=== PATIENT | male | born 1970 | race Caucasian/White ===

== ENCOUNTER 2018-11-19 11:21 | Inpatient (IN) | payer OTHER ==
[~2018-11-19 11:21] MED LIST: Lidocaine 1% INJ* 10 MG/ML 30 ML SDV ONE
[2018-11-19] MEDS ORDERED: Midazolam* 1 MG/ML 5 ML VIAL (5 MG) ONE (11:22)
[2018-11-19] MEDS ORDERED: VERAPAMIL 2.5 MG/ML 2 ML VIAL ** 5 mg/2 ml ONE (11:22)
[2018-11-19] MEDS ORDERED: Iohexol 350 (CONTRAST) 200 ML MDV IV ONE ×2 (11:23→11:24)
[2018-11-19] MEDS ORDERED: nitroGLYCERIN DRIP* 25,000 MCG/250 ML BTL ONE (11:23)
[2018-11-19] MEDS ORDERED: Lidocaine 1% INJ* 10 MG/ML 30 ML SDV ONE (11:23)
[2018-11-19] MEDS ORDERED: Heparin 2 UNITS/ML IVPREMIX* 3,000 UNIT/1,500 ML BAG IV ONE (11:24)
--- NOTE | 2018-11-19 11:41 | UC ---
- Progress Note Progress Note: Patient presents to the emergency department stretcher transfer from our hospital. Patient's a 48-year-old gentleman with a history of tobacco use. Patient does not have a primary care provider. Patient presented at [facility] with acute onset chest pain. EKG showed inferior wall STEMI. Patient was given heparin [facility]. Patient was infected by me to cardiac catheterization lab. [facility]. Patient had a 62nd episode of ventricular tachycardia cardia at [facility] and was given 300 mg amiodarone bolus as well as started on a drip. Patient's EKG changes resolved following the nitroglycerin at OSH. Cardiac cath associate designer was notified at initial STEMI. He has been in contact with [facility] provider. He was present when the patient arrived [facility]'s emergency department. Patient was stable with no complaints upon arrival. Patient was admitted directly to cardiac Physician. Physical exam was not completed by me is Attending was at the bedside and the patient left the department in less than 5 minutes. Course/Dx - Diagnoses Provider Diagnoses: STEMI (ST elevation myocardial infarction) Discharge - Sign-Out/Discharge Documenting (check all that apply): Patient Departure All imaging exams completed and their final reports reviewed: No Studies - Discharge Plan Condition: Fair Disposition: ADMITTED TO [facility] - Billing Disposition and Condition Condition: FAIR Disposition: Admitted to [facility]
[2018-11-19] MEDS ORDERED: Heparin DRIP 25,000 UNITS(*) 25,000 UNITS/500 ML BAG ONE (12:01)
[2018-11-19] MEDS ORDERED: NS 0.9% 1000 ML** 1,000 ML IV SCH (12:45)
--- NOTE | 2018-11-19 13:44 | HP ---
HISTORY AND PHYSICAL: DATE OF ADMISSION: 11/19/18 ATTENDING PHYSICIAN: Dr. Yakov Lancaster, superintendent institution * (dictated by Aubrie Hernandez NP) CHIEF COMPLAINT: Chest pain with ST elevation myocardial infarction at [facility]. HISTORY OF PRESENT ILLNESS: This is a 48-year-old male patient with a notable history of ongoing tobacco abuse, marijuana use, and alcohol use, who presented to [facility] this morning due to complaints of chest pain. The patient states that he has been in his usual state of health; denies any recent hospitalization, illness, or infection. 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 He states that he has not noticed decreased exercise tolerance, chest pain, dizziness, syncope, or shortness of breath. Apparently, he has been in his usual state of health up until this morning around 0830 when he was putting on his pants, he suddenly developed substernal chest pain with associated diaphoresis. The patient states he thought pain was "indigestion;" however, pain was constant and ongoing, thus he drove himself to [facility]. While being evaluated in the hospital, the patient had basic blood work obtained and ECG obtained. Initial ECG at 0913 revealed sinus rhythm, rate of 63, with anterolateral ST segment elevation in leads V3, 4, 5, and 6. The patient was given aspirin 325 mg x1, Brilinta 180 mg x1, IV heparin with bolus. At 0938, the pain had resolved. Thus, ECG was updated which showed a near resolution of ST segment elevation; however, reportedly, the patient developed VT, likely related to reperfusion. Thus, he was given 300 mg of IV amiodarone followed by drip. VT did not require defibrillation; he converted on his own. He has been stable since and was transferred to [facility] for urgent left heart catheterization due to anterolateral STEMI. The patient was seen and examined in the emergency department by myself and Dr. Yakov Lancaster. He denies cocaine use, denies any other reported symptoms and states he has never had chest pain in the past, this was the first episode. PAST MEDICAL HISTORY: 1. Tobacco abuse. 2. Alcohol use. 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 ALLERGIES: The patient reports anaphylaxis to BEE STINGS, otherwise denies allergy to contrast dye, shellfish, or red dye. FAMILY HISTORY: Denies cardiovascular disease in first-degree relatives. SOCIAL HISTORY: The patient is to his , Renita, whom he resides with. 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 He reports smoking half a pack of cigarettes a day for more than 30 years, consumes 1 to 2 beers a night, reports frequent marijuana use, but denies IV drug use or cocaine use. He ambulates independently. REVIEW OF SYSTEMS: All systems have been reviewed and are otherwise negative except what is above mentioned in the HPI. PHYSICAL EXAMINATION GENERAL: The patient is anxious, lying in stretcher in the emergency department upon examination. However, he is alert and oriented x3 and he is cooperative with the examination. He does not currently appear to be in any apparent distress. HEENT: Head is atraumatic, normocephalic. Oral mucosa is moist. Tongue is midline. NECK: Supple, trachea midline, no JVD, no carotid bruits. LUNGS: Auscultated posteriorly. Diminished throughout, although there is no evidence of adventitious breath sounds auscultated. CARDIAC: Diminished S1, S2, regular rate and rhythm. No murmur, rub or gallop noted. /GI: Abdomen is soft, nontender, nondistended. Normoactive bowel sounds x4. EXTREMITIES: No pedal edema, no clubbing, no cyanosis. PERIPHERAL VASCULAR: 2+ brachial and dorsalis pedis pulses palpable bilaterally and symmetrically. Vital signs are pending to be obtained. DIAGNOSTIC STUDIES/LAB DATA: Blood work obtained at [facility] on 11/19: Per report, troponin 0.027, CK-MB 1.8, white blood cell count 6.28, hemoglobin 16.2, hematocrit 46.5, platelets 159. INR pending. Sodium 141, potassium 3.7, magnesium 1.9, creatinine 1.1, BUN 12, glucose 79. ECG on 11/19/18 at 0913: Sinus rhythm, rate of 63, with anterolateral ST segment elevation. Repeat ECG at 0930 on 11/19/18: Sinus rhythm, rate of 73, with near resolution of anterolateral ST segment elevation. ASSESSMENT AND PLAN: 1. Anterolateral ST-elevation myocardial infarction. The patient had sudden onset complaint of substernal chest pain with associated diaphoresis at 0830 this morning. He states he has been in his usual state of health. Risk factors include ongoing tobacco abuse and alcohol use. The patient had resolvement of symptoms and improvement of ST segment elevation with near resolution after the patient was given aspirin, Brilinta, and IV heparin therapy. However, he developed ventricular tachycardia that was treated chemically with 300 mg of IV amiodarone followed by a drip, likely reflective of reperfusion. The patient is currently asymptomatic. He has been taken urgently to the cardiac laborer wrecking [facility] salvaging where he will undergo a left heart catheterization with Dr. Yakov Lancaster. Procedure was reviewed with the patient including risks and benefits not limited to and include bleeding, infection, vessel damage, risk of contrast-use nephropathy, risk of stroke, heart attack, or , requirement of dual-antiplatelet therapy or referral for possible bypass surgery. Consent was obtained by Dr. Yakov Lancaster. The patient will need to be admitted to the ICU afterwards. We will check echocardiogram and follow closely. 2. Newly diagnosed coronary artery disease. We will check lipid panel. We recommend LDL less than 70. We will continue aspirin 81 mg a day, likely continue Brilinta at 90 mg p.o. b.i.d. and we will make further recommendations in regards to medical therapy after cardiac catheterization today. 3. Ongoing tobacco abuse. I personally counseled the patient the importance of smoking cessation for overall cardiovascular benefits. The patient does not seem interested in quitting at this time. 4. Ventricular tachycardia. The patient apparently had ventricular tachycardia after chest pain resolved and ST elevation improved, likely related to reperfusion. Potassium is 3.7, recommend keeping potassium greater than 4; magnesium 1.9, recommend keeping magnesium greater than 2. We will continue IV amiodarone therapy at this time and make further recommendations post left heart cath. 5. Disposition. Pending course. Dr. Yakov Lancaster has personally seen and examined the patient and agrees with the above assessment and plan. AUBRIE HERNANDEZ NP [id number]/[facility] #: [id number] HARRY
--- NOTE | 2018-11-19 14:26 | CATH ---
"*[facility]* [place] [address] Main: [phone] [email or web address] Cardiac Catheterization Patient: Maxime Camargo : 1970 Study Date: 11/19/2018 Age: 48 Gender: M HR: Height: 66 in /167.6 cm BSA: 1.69 m^2 Weight: 134.2 lb /61 kg BMI: 21.7 kg/m^2 [place] Supervisor: Yakov Lancaster MD Ordering Physician: Yakov Lancaster MD Referring Physician: Yakov Lancaster MD - Left coronary angiography. - Right coronary angiography. - Left heart catheterization with angiography. Summary: 1. Left ventricle: The estimated ejection fraction is 40-45%. Severe hypokinesis of the anterolateral and anteroapical myocardium. Akinesis of the apical myocardium. 2. No significant coronary disease. Recommendations: Aggressive medical management for left ventricle dysfunction and possible coronary artery spasm. Aggressive risk factor management. Indications: Acute coronary syndrome. History: Risk factors: Current tobacco use. Medications: The patient received no antianginal therapy in the last two weeks. Labs, prior tests, procedures, and surgery: Blood tests: CPK-MB (pre-procedure) of 1.8 ng/ml. CPK peak of 116 units/l. Troponin I (pre-procedure) of 0.03 ng/ml. International normalized ratio (INR) . Serum potassium (K) of 3.7 mEq/l. Serum sodium (Na) of 141 mEq/l. Serum creatinine (current admission) of 1.1 mg/dl. Blood urea nitrogen of 12 mg/dl. Glucose of 79 mg/dl. Platelet count of 159 th/ul. White blood cell count (WBC) of 0.01 th/ul. Red blood cell count (RBC) of 5150 th/ul. Hematocrit of 46.5 %. Hemoglobin (pre-procedure) of 16.2 g/dl. Study data: Study status: Cardiac cath: urgent. Location: Catheterization laboratory. Consent: The risks, benefits, and alternatives to the procedure were explained to the patient and/or their healthcare patient accounting representative and written informed consent was obtained. All available pre-procedure labs were reviewed. Height: 167.6 cm. 66 in. Weight: 61 kg. 134.2 lb. Body surface area: 1.69 m^2. Body mass index: 21.7 kg/m^2. Procedure: 1. Initial setup. The patient was brought to the laboratory. Surface ECG leads, blood pressure measurements, and pulse oximetric signals were monitored. A baseline seven lead ECG was recorded. A time out was observed per protocol. 2. Skin preparation. The planned puncture sites were prepped and draped in the usual sterile manner. 3. Local anesthesia. 1% lidocaine was administered. 4. Local anesthesia. 1% lidocaine (2 ml) was administered. 5. Right radial artery access. A 6F Glidesheath Slender sheath was advanced into the vessel. 6. ACT was 203 sec. Anticoagulation was judged to be satisfactory. 7. Selective left coronary angiography. A 5F TIG 4.0 catheter was advanced into the left coronary vessel ostium under fluoroscopic guidance. Contrast was injected. Images were obtained in multiple projections. 8. Selective right coronary angiography. A 5F RCB IMPULSE catheter was advanced into the right coronary vessel ostium under fluoroscopic guidance. Contrast was injected. Images were obtained in multiple projections. 9. Left heart catheterization with angiography. A 5F PIG Short Radial catheter was advanced across the aortic valve to the left ventricle under fluoroscopic guidance. 24 ml of contrast was injected at 12 ml/s. 10. Right radial artery hemostasis. Vessel closure was achieved with a Regular Vasc Band device. Hemostasis was successfully obtained. Study completion: Minimal estimated blood loss. All catheters inserted during the procedure were removed. There were no apparent complications. Administered medications: Heparin, infusion, at a rate of 500 units/hr, IV was discontinued. Started at other institution. AMIODARONE (drip), at a rate of 1 mg/min, IV. Started at other institution. BRILINTA (Ticagrelor), 180 mg, PO given at other institution. Aspirin, 324 mg, PO, given at other institution. (Radial) Nitroglycerin, 300mcg, intra-arterially. (Radial) Verapamil, 3mg, intra-arterially. VERSED (Midazolam), for a total dose of 1mg, IV. NaCl 0.9% , infusion , at a rate of 100 ml/hr. Contrast: Omnipaque 350 75 ml (total dose). Omnipaque 350 125 ml (wasted). Radiation: Fluoroscopy time: 6.5 min. Air Kerma was 688 mGY. Discharge: The patient tolerated the procedure well and was discharged from the lab in stable condition. Findings Coronary arteries: The coronary circulation is right dominant. The left circumflex gives rise to 3 obtuse marginals. The right coronary gives rise to the posterior descending artery and 3 posterolaterals. Left main: LAD: Ostial lesion: There is a 20% stenosis. The left anterior descending coronary supplies amoderate size mid diagonal branch followed by several small caliber diagonal branches. No significant disease is seen throughout these vessels. Ramus intermedius: Proximal vessel lesion: There is a 25% stenosis. Left circumflex: 2nd obtuse marginal: Proximal vessel lesion: There is a 15% stenosis. There is no significant disease seen throughout the circumflex system. Right coronary: Normal,no significant disease was seen in the rightcoronary artery.. Left ventricle: A recent ejection fraction by echocardiography is available. The estimated ejection fraction is 40-45%. Regional wall motion abnormalities: Severe hypokinesis of the anterolateral and anteroapical myocardium. Akinesis of the apical myocardium. Hemodynamics: + + + |Stage description |Condition 1 - | + + + |LV pressure s/d, ed |124/9, 29, dP/hy=1489 mm Hg/s| + + + |Arterial pressure s/d (m)|135/85 (107) | + + + Prepared and electronically signed by Yakov Lancaster MD 11/19/2018 14:24"
[2018-11-19] MEDS: amLODIPine TAB* 5 MG PO SCH (14:27)
[2018-11-19 15:14] LABS: Urine Benzodiazepine Screen Presumptive Positive (None Detect); Urine Opiates Screen None Detected (None Detect)
[2018-11-19] MEDS ORDERED: Amiodarone 360 MG IVPREMIX* 360 MG/200 ML BAG IV SCH (16:00)
[2018-11-19 16:43] LABS: Troponin I 0.82 ng/mL (<0.04)
[2018-11-20 04:57] LABS: ALT 26 U/L (7-52); AST 27 U/L (13-39); Albumin 3.8 g/dL (3.2-5.2); Albumin/Globulin Ratio 1.4 (1-3); Alkaline Phosphatase 89 U/L (34-104); Anion Gap 7 mmol/L (2-11); BUN/Creatinine Ratio 15.2 (8-20); Blood Urea Nitrogen 15 mg/dL (6-24); CO2 Carbon Dioxide 22 mmol/L (22-32); Calcium 8.5 mg/dL (8.6-10.3); Chloride 106 mmol/L (101-111); Cholesterol 133 mg/dL; EGFR African American 97.6 (>60); EGFR Non-African American 80.7 (>60); Globulin 2.8 g/dL (2-4); Glucose 101 mg/dL (70-100); HDL Cholesterol 45.9 mg/dL; LDL Cholesterol 60 mg/dL; Potassium 4.1 mmol/L (3.5-5.0); Sodium 135 mmol/L (135-145); Total Protein 6.6 g/dL (6.4-8.9); Triglycerides 137 mg/dL
[2018-11-20 05:24] LABS: ABS Eosinophils 0.2 10^3/ul (0-0.6); ABS Lymphocytes 1.7 10^3/ul (1.0-4.8); ABS Monocytes 0.4 10^3/ul (0-0.8); ABS Neutrophils 2.7 10^3/ul (1.5-7.7); Eosinophil % 4.5 %; Hematocrit 47 % (42-52); Hemoglobin 16.1 g/dL (14.0-18.0); Lymphocyte % 34.1 %; Mean Corpuscular HGB Conc 34 g/dL (31-36); Mean Corpuscular Hemoglobin 32 pg (27-31); Mean Corpuscular Volume 93 fL (80-94); Mean Platelet Volume 9.4 fL (7.4-10.4); Nucleated Red Blood Cells % 0.1; Platelet Count 123 10^3/uL (150-450); Red Blood Count 5.08 10^6 /uL (4.18-5.48); Red Cell Distribution Width 14 % (10-15); White Blood Count 5.1 10^3/uL (3.5-10.8)
[2018-11-20 08:18] LABS: Creatine Kinase 110 U/L (10-223)
[2018-11-20] MEDS: amLODIPine TAB* 5 MG PO SCH (08:20)
[2018-11-20] MEDS: Aspirin 81 mg CHEW TAB* 81 MG TAB.CHEW PO SCH (08:22)
[2018-11-20 08:24] LABS: CKMB ng/mL 6.7 ng/mL (0.6-6.3)
[2018-11-20] MEDS ORDERED: Perflutren Lipid Microsphere* 3 ML VIAL ONE (08:41)
[2018-11-20 08:48] LABS: Troponin I 0.66 ng/mL (<0.04)
[2018-11-20] MEDS ORDERED: Clopidogrel TAB* 300 MG PO ONE (10:52)
[2018-11-20] MEDS ORDERED: Atorvastatin* 40 MG TAB PO ONE (12:00)
[2018-11-20] MEDS ORDERED: Diltiazem CD CAP* 120 MG PO SCH (12:00)
[2018-11-20] MEDS ORDERED: Atorvastatin* 40 MG TAB PO SCH (17:00)
[2018-11-21] MEDS: Aspirin 81 mg CHEW TAB* 81 MG TAB.CHEW PO SCH (08:02)
[2018-11-21] MEDS ORDERED: Clopidogrel TAB* 75 MG PO SCH (09:00)
[2018-11-21] MEDS ORDERED: Diltiazem CD CAP* 180 MG PO SCH (09:00)
[2018-11-21 09:46] LABS: Creatine Kinase 55 U/L (10-223)
[2018-11-21 09:51] LABS: CKMB ng/mL 1.9 ng/mL (0.6-6.3)
[2018-11-21 10:19] LABS: Troponin I 0.27 ng/mL (<0.04)
[2018-11-21 12:13] VITALS: BP 127/78
--- NOTE | 2018-11-21 16:19 | DS ---
CC: Dr. Yakov Levy; Dr. Jason Cotto * DISCHARGE SUMMARY: DATE OF ADMISSION: 11/19/18 DATE OF DISCHARGE: Pending no complications, 11/21/18. ATTENDING PHYSICIAN: Dr. Yakov Lancaster.* (DICTATED BY CORNELIO BURRIS NP) PRIMARY CARE PHYSICIAN: Dr. Yakov Levy. PRIMARY AUTISM TUTOR: Dr. Jason Cotto. ADMITTING DIAGNOSES: 1. Anterolateral ST-elevation myocardial infarction with sudden onset of substernal chest pain around 0830 on 11/19/[address] elevation after administration of heparin, nitrate, aspirin, and Brilinta therapy at [facility]. 2. Sustained ventricular tachycardia, converted on own, presented with IV amiodarone therapy from outlying facility. K and mag were essentially normal. 3. History of ongoing tobacco abuse. 4. History of alcoholism. DISCHARGE DIAGNOSES: 1. Anterolateral ST-segment elevation, presumed to be related to coronary spasm. The patient had essentially normal coronary arteries. Troponin peaked at 0.82 on 11/19/18. The patient is to be discharged home with Plavix, statin, and Cardizem therapy. No recurrent chest pain since 11/19/18. 2. Polymorphic sustained ventricular tachycardia; reviewed telemetry strips from outlying facility. The patient had a greater than 100-beat count of polymorphic ventricular tachycardia at 250 beats per minute. The patient's potassium at that time was 3.8, magnesium was 1.9. I am told after chest pain had resolved, shortly thereafter, there was a repeat ECG, which showed normalization of ST-segment elevation. This was possibly related to reperfusion injury. No recurrent sustained or nonsustained ventricular tachycardia noted on telemetry. He has had occasional ventricular premature complexes with couplets, asymptomatic, on Cardizem therapy. Dr. Grupo Mendoza, electrophysiology at [facility], was kind enough to discuss the case with Dr. Yakov Lancaster, who recommended a LifeVest. The patient is agreeable. He will be sent home with LifeVest prior to discharge. The patient will need an echocardiogram closely in followup given LVEF was 35% on echocardiogram on 11/20. 3. Ongoing tobacco abuse; the patient states that he is going to stop smoking. He is aware of the overall cardiovascular benefits of smoking cessation. PROCEDURES PERFORMED: The patient had a cardiac catheterization performed by Dr. Yakov Lancaster on 11/19/18. At that time, a 6-Guyanese Glidesheath catheter was inserted to the right radial artery. Per report, left main 20% stenosis. LAD supplies moderate-size mid diagonal branch followed by several small-caliber diagonal branches. No significant disease seen throughout the vessels. Ramus intermedius proximal vessel lesion 25% stenosis. Left circumflex second obtuse marginal proximal vessel lesion 15% stenosis. No significant disease seen throughout the circumflex system. Right coronary artery normal. No significant disease seen in the RCA. LVEF 40% to 45%. Regional wall motion abnormalities with severe hypokinesis of the anterolateral and anteroapical myocardium. Akinesis of the apical myocardium. COMPLICATIONS: None thus far. COURSE OF THE HOSPITAL STAY: This is a pleasant 48-year-old male patient, who denied prior medical history, who reported ongoing tobacco and marijuana use, who presented at [facility] on 11/19/18 after developing sudden onset of anterior chest pain after putting jeans on around 8:30. Pain was constant and ongoing, so self-presented himself to [facility]. While being evaluated per ECG on 11/19/18 at 9:13, the patient had anterolateral ST-segment elevation with troponinemia at 0.027. STEMI alert was called. He was given IV bolus heparin followed by drip. Aspirin 325 mg, nitroglycerin therapy. Shortly thereafter, on telemetry, he had a greater than 100-beat count of polymorphic VT at 250 beats per minute. The patient was given 300 mg of IV amiodarone, followed by drip and converted spontaneously on his own. He did not require defibrillation. He was loaded with 180 mg of Brilinta therapy and transferred via [facility] to [facility]. Prior to being transferred, however, at 9:38, there was reported resolution of chest pain. ECG showed near normalization of anterolateral ST segment elevation while being evaluated urgently through the emergency department by Dr. Yakov Lancaster and myself. He was still stable without any recurrent complaints of chest pain; thus, was taken urgently to the technology lab teacher where he underwent the above-mentioned procedure. After the procedure, he was transferred to the ICU. He has been monitored on telemetry sensors, but no recurrent sustained or nonsustained VT; however, there have been VPCs with occasional couplets. He has been asymptomatic and offers no complaints. He was started on Plavix 75 mg a day, diltiazem 180 mg a day, atorvastatin 40 mg a day, aspirin has been discontinued. Troponin peaked at 0.82 on 11/19/18, has continued to trend down. This mornings ECG revealed sinus rhythm with anterolateral T-wave inversion consistent with recent myocardial ischemia. LDL was 60. Given polymorphic sustained VT, presumed to be related to re-perfusion injury, Dr. Yakov Lancaster personally spoke with Dr. Grupo Mendoza, Electrophysiology at [facility], who recommends bypass. Indication for LifeVest was reviewed with patient, who is agreeable to being discharged home with bypass; order has been placed. Most recent set of vital signs, temperature 98.4, pulse 77, respirations 20, oxygenation 95% on room air, blood pressure 118/73. This morning's blood work, troponin was 0.27, CK-MB 1.9, total CK 55. Tox screen was obtained during admission, presumed positive benzodiazepines and cannabinoids in urine. No cocaine detected. Pending no complications, the patient is to be discharged home later today on Lipitor, Cardizem, and Plavix therapy. We will send in prescription to [facility] [place] for nitroglycerin 0.4 mg sublingual q.5 minutes up to 3 doses p.r.n. He is aware to take this if he has recurrent symptoms and is in sitting or lying down position. Patient was started on Imdur 30mg Po daily as well. DISCHARGE DISPOSITION: To home in stable condition. FOLLOWUP APPOINTMENTS: The patient will need a follow up with: 1. Bassam Swan PA-C, in the 7 to [address] Veronica Mukherjee on 11/25/18 at 03:20 p.m. at our medical office building. 3. Dr. Jason Cotto on 12/11/18 at 11:16 at our [place] location. DISCHARGE BLOOD WORK TO BE OBTAINED: None. ACTIVITY: The patient was instructed to not drive for the next 5 to 7 days. He is to not lift anything more than 5 to 10 pounds for 7 to 10 days. He is to not go back to work until directed by quality intern in followup, which will be discussed at followup appointment with Dr. Mukherjee. He is to aware to not do any strenuous activity and to take medications as directed. DISCHARGE MEDICATION LIST: 1. Diltiazem 180 mg a day. 2. Plavix 75 mg a day. 3. Lipitor 40 mg p.o. daily. 4. Nitroglycerin 0.4 mg sublingual q.5 minute p.r.n. up to [address] Yakov Lancaster has personally seen and examined the patient and agrees with the above assessment and plan. 5. Imdur 30mg Po daily. CORNELIO BURRIS NP [id number]/[facility] #: [id number] HARRY
[2018-11-21] MEDS ORDERED: Atorvastatin* 80 MG TAB PO ONE (17:00)
[2018-11-21] MEDS ORDERED: Atorvastatin* 40 MG TAB PO SCH (17:00)
[2018-11-21] MEDS ORDERED: Isosorbide Mononitrate ER TAB* 30 MG PO SCH (18:00)
--- NOTE | 2018-11-25 10:45 | ECHO ---
*[facility]* [place] [address] Fax #: [phone] Transthoracic Echocardiogram Patient: Maxime Camargo : 1970 Study Date: 11/20/2018 Age: 48 Gender: M HR: 63 bpm Height: 66 in /167.6 cm BSA: 1.68 m^2 Weight: 132.7 lb /60.3 kg BMI: 21.5 kg/m^2 *Calender Let Off Operator: * Bryanna Love RDCS RN *Referring Physician: * Yakov Lancaster MD *Reading Physician: * Jesus Fuller MD Indications: Cardiomyopathy History: S/P cardiac catheterization for anterolateral STEMI on 11/19/2018. V. Tach. Risk factors: Current tobacco use. ETOH use. Conclusions Summary: 1. Left ventricle: The cavity size is normal. Wall thickness is normal. Systolic function is moderately reduced with an estimated LV ejection fraction of 35% and mid left anterior descending coronary territory wall motion abnormalities noted. 2. Right ventricle: The cavity size is normal. Systolic function is mildly reduced. 3. Left atrium: The atrium is normal in size. 4. No significant valvular abnormalities noted. Recommendations: None prior for comparison. Study data: Transthoracic echocardiogram. Procedure: Transthoracic echocardiography was performed. The study was technically limited due to poor acoustic window availability and smoking history. Intravenous agitated saline was administered. A bubble study was performed on Images 7-9. Definity 4 ml was given IV. Image enhancement administered by Zelda Love RN, RDCS. Complete 2D, spectral Doppler, and color flow Doppler. Patient status: Inpatient. Patient room number: ICU 7. Rhythm: Normal sinus rhythm. Findings Left ventricle: The cavity size is normal. Wall thickness is normal. Systolic function is moderately reduced with an estimated LV ejection fraction of 35% and mid left anterior descending coronary territory wall motion abnormalities noted. Regional wall motion abnormalities: Severe hypokinesis of the apical anterior, mid anteroseptal, apical septal, and apical myocardium; moderate hypokinesis of the mid anterolateral myocardium; mild hypokinesis of the mid anterior, mid inferoseptal, apical inferior, and apical lateral myocardium. Doppler parameters are consistent with abnormal left ventricular relaxation (grade 1 diastolic dysfunction). Right ventricle: The cavity size is normal. Systolic function is mildly reduced. Left atrium: The atrium is normal in size. Right atrium: The atrium is normal in size. Atrial septum: No defect or patent foramen ovale is identified. Bubble study was negative. Images 7-9. Mitral valve: The leaflets are mildly thickened. There is no evidence of stenosis. There is mild regurgitation. Aortic valve: The valve is trileaflet. The leaflets are mildly thickened. Cusp separation is normal. Transvalvular velocity is within the normal range. There is no evidence of stenosis. There is no regurgitation. Tricuspid valve: The valve is structurally normal. There is no evidence of stenosis. There is trace regurgitation. Pulmonic valve: Not well visualized. There is no evidence of stenosis. There is no regurgitation. Aorta: Aortic root: The aortic root is not dilated. Ascending aorta: The ascending aorta is not dilated. Aortic arch: The aortic arch is not dilated. Pericardium: There is no pericardial effusion. Pulmonary arteries: Not well visualized. Systolic pressure can not be accurately estimated. Systemic veins: Inferior vena cava: The vessel is normal in size. The respirophasic diameter changes are blunted (< 50%). Measurements Left ventricle Value Ref Aortic valve Value Ref ABIGAIL, LAX 4.6 cm 4.2 - 5.8 Adri diam, ED 2.0 cm ---- ESD, LAX 3.0 cm 2.5 - 4.0 Peak v, S 0.84 m/sec ---- FS, LAX 34 % 25 - 43 VTI, S 14.8 cm ---- FS 34 % 25 - 43 Mean grad, S 2.0 mm Hg ---- PW, ED 0.9 cm 0.6 - 1.0 Peak grad, S 3.0 mm Hg ---- IVS/PW, ED 1.03 LVOT/AV, VTI ratio 0.91 ---- E', lat adri, TDI (L) 8.4 cm/sec >=10.0 E/e', lat adri, 8 Mitral valve Value Ref TDI Peak E 0.67 m/sec ---- E', med adri, TDI 7.0 cm/sec >=7.0 Peak A 0.6 m/sec -- -- E/e', med adri, 10 Decel time 271 ms ---- TDI Peak E/A ratio 1.1 ---- E', avg, TDI 7.7 cm/sec E/e', avg, TDI 9 <=14 Pulmonic valve Value Re f Peak v, S 0.56 m/sec ---- LVOT Value Ref Peak grad, S 1.0 mm Hg ---- Peak adeline, S 0.68 m/sec VTI, S 13.5 cm Aortic root Value Ref Mean grad, S 1 mm Hg Root diam 3.2 cm <3.9 Ventricular septum Value Ref Ascending aorta Value Ref IVS, ED 0.9 cm 0.6 - 1.0 AAo AP diam, S 3.3 cm ---- Right ventricle Value Ref Aortic arch Value Ref ABIGAIL, LAX 2.7 cm Arch diam 2.3 cm ---- ABIGAIL minor ax, 3.3 cm 1.9 - 3.5 A4C mid Decending aorta Value Ref Irma peak adeline 0.98 m/sec ---- Left atrium Value Ref AP dim, ES (L) 2.30 cm 3.00 - Inferior vena cava Value Ref 4.00 Diam 1.9 cm ---- ML dim, A4C 3.8 cm SI dim, A4C 4.0 cm Vol/bsa, ES, 1-p 17 ml/m^2 12 - 37 A4C Vol/bsa, ES, A/L 17 ml/m^2 16 - 34 Right atrium Value Ref ML dim, ES, A4C 3.5 cm 2.6 - 4.4 SI dim, ES, A4C 3.8 cm 3.4 - 5.3 Legend: (L) and (H) reid values outside specified reference range. Prepared and electronically signed by Jesus Fuller MD 11/20/2018 11:05
== END 2018-11-21 15:36 | disposition home or self-care (01) | DRG 190 ==
LOC: ED 11:21 → CHICATH 11:21 → ICU 12:42 → MEDTELE 11-20 11:55
PROVIDERS: ADMIT Internal Medicine Cardiovascular Disease; ATTEND Internal Medicine Cardiovascular Disease
PROC: 4A023N7 Measurement of Cardiac Sampling and Pressure, Left Heart, Percutaneous Approach (ICD-10-PCS; 2018-11-19)
PROC: B2111ZZ Fluoroscopy of Multiple Coronary Arteries using Low Osmolar Contrast (ICD-10-PCS; principal; 2018-11-19 15:00)
DX: I21.09 ST elevation (STEMI) myocardial infarction involving other coronary artery of anterior wall (principal); I47.2 Ventricular tachycardia; I25.111 Atherosclerotic heart disease of native coronary artery with angina pectoris with documented spasm; F17.210 Nicotine dependence, cigarettes, uncomplicated; Z89.022 Acquired absence of left finger(s); Z91.030 Bee allergy status; Z91.041 Radiographic dye allergy status; Z79.02 Long term (current) use of antithrombotics/antiplatelets
CPT/HCPCS: 36415; 76937; 80053; 80061; 80307; 82550; 82553; 84484; 85025; 85347; 87641; 93005; 93306; 93458; 99284; 99406; A9270-GY; C8929; J0282; J1644; J2250